=== PATIENT | female | born 1955 | race Caucasian/White ===

== ENCOUNTER → 2016-12-26 | Outpatient (CLI) | payer BC | LOC: RT 12:11 | PROVIDERS: ATTEND Family Medicine | DX: R55 Syncope and collapse (principal) | CPT/HCPCS: 93225 ==

== ENCOUNTER → 2017-01-26 | Outpatient (CLI) | payer BC | LOC: RAD 10:13 | PROVIDERS: ATTEND Family Medicine | DX: I25.10 Atherosclerotic heart disease of native coronary artery without angina pectoris (principal); R41.82 Altered mental status, unspecified; R55 Syncope and collapse | CPT/HCPCS: 93880 ==